=== PATIENT | female | born 1990 | race Caucasian/White ===

== ENCOUNTER 2017-08-15 08:51 | Day surgery (SDC) | END 2017-08-15 13:24 | disposition home or self-care (01) ==

== ENCOUNTER 2017-09-15 09:51 | Emergency (ER) | END 2017-09-15 13:08 | disposition home or self-care (01) ==

== ENCOUNTER 2017-10-19 23:21 | Emergency (ER) | END 2017-10-20 01:36 | disposition home or self-care (01) ==

== ENCOUNTER 2018-01-30 15:26 | Emergency (ER) | END 2018-01-30 18:06 | disposition home or self-care (01) ==

== ENCOUNTER 2018-02-27 15:35 | Emergency (ER) | END 2018-02-27 16:51 | disposition home or self-care (01) ==

== ENCOUNTER 2018-03-23 09:10 | Emergency (ER) | END 2018-03-23 11:09 | disposition home or self-care (01) ==

== ENCOUNTER 2018-05-31 15:13 | Emergency (ER) | payer OTHER ==
[~2018-05-31] VITALS: Ht 160 cm; Wt 65.4 kg
[~2018-05-31 15:13] MED LIST: ACET500C5 PO; ALBU8.5H8 INH; AMOX500C2 PO; AZIT250T PO; CETI10CA PO; FLUT9.9S NASAL; GUAI-637 PO; GUAI5SYR2 PO; IBUP-1542 PO; METO10TA92 PO
[2018-05-31 15:15] VITALS: BP 116/59; PULSE 99; RESP 18; Ht 160 cm; Wt 65.4 kg
--- NOTE | 2018-05-31 16:28 | ERD ---
ER Documentation Chief Complaint Chief Complaint L-LEG NUMBNESS X 2 DAYS S/P LUMBAR PUNCTURE TO R/O MS; AMBULATORY HPI 27-year-old female, presents to the emergency department, complaining of 2 days with left lower extremity numbness after having a lumbar puncture as a part of an evaluation for multiple sclerosis. The patient denies fevers, no chills, no rashes. No incontinence. The patient has been able to ambulate without difficulty. ROS All systems reviewed and are negative except as per history of present illness. Medications Home Meds Active Scripts Ibuprofen* (Motrin*) 600 Mg Tab, 600 MG PO Q6, #30 TAB Prov:JU HICKEY PA-C 03/23/18 Acetaminophen* (Tylophen*) 500 Mg Capsule, 1 CAP PO Q6H PRN for PAIN AND OR ELEVATED TEMP, #20 CAP Prov:ZOHREH BARAJAS PA-C 02/27/18 Amoxicillin* (Amoxicillin*) 500 Mg Cap, 500 MG PO TID for 10 Days, CAP Prov:ZOHREH BARAJAS PA-C 02/27/18 Metoclopramide* (Reglan*) 10 Mg Tablet, 10 MG PO Q6 PRN for NAUSEA AND/OR VOMITING, #10 TAB Prov:ZOHREH BARAJAS PA-C 01/30/18 Guaifenesin* (Robitussin*) 100 Mg/5 Ml Syrup, 200 MG PO Q6H PRN for COUGH for 3 Days, ML Prov:ROSARIO ESTEBAN 10/20/17 Albuterol Sulfate* (Proair HFA*) 8.5 Gm Hfa.aer.ad, 2 PUFF INH Q6H PRN for WHEEZING AND SOB, #1 INHALER Prov:ROSARIO ESTEBAN 10/20/17 Azithromycin* (Zithromax*) 250 Mg Tablet, 250 MG PO .ZPACK DIRECTED, #6 TAB TAKE 500 MG (2 TABS) THE FIRST DAY THEN 250 MG (1 TAB) DAYS 2-5 Prov:ROSARIO ESTEBAN 10/20/17 Guaifenesin-Dextromethorphan* (Robitussin* DM) 100MG/10MG/5ML Syrup, 10 ML PO Q6H PRN for COUGH for 5 Days, ML Prov:NATHANAEL PEREZ PA-C 09/15/17 Fluticasone Propionate (Flonase Allergy Relief) 9.9 Ml [place].susp, 2 SPRAY NASAL DAILY, #1 BOTTLE TO EACH NOSTRIL Prov:NATHANAEL PEREZJon SALCEDO 09/15/17 Cetirizine Hcl* (Zyrtec*) 10 Mg Capsule, 10 MG PO DAILY, #14 TAB.CHEW Prov:NATHANAEL PEREZJon SALCEDO 09/15/17 Allergies Allergies: Coded Allergies: No Known Allergy (Unverified , 01/30/18) PMhx/Soc History of Surgery: Yes (C/S X2, ARM SURGERY, TONSILLECTOMY) Anesthesia Reaction: No Hx Neurological Disorder: Yes (migraine) Hx Respiratory Disorders: No Hx Cardiac Disorders: No Hx Psychiatric Problems: No Hx Miscellaneous Medical Probl: No Hx Alcohol Use: No Hx Substance Use: No Hx Tobacco Use: No Smoking Status: Never smoker FmHx Family History: No diabetes, No coronary disease Physical Exam Vitals Physical Exam Const: No acute distress Head: Atraumatic Eyes: Normal Conjunctiva ENT: Normal External Ears, Nose and Mouth. Neck: Full range of motion. No meningismus. Resp: Clear to auscultation bilaterally Cardio: Regular rate and rhythm, no murmurs Abd: Soft, non tender, non distended. Normal bowel sounds Skin: No petechiae or rashes Back: No midline or flank tenderness Ext: No cyanosis, or edema Neur: Awake and alert Psych: Normal Mood and Affect Results 24 hrs Laboratory Tests Test 05/31/18 16:36 POC Beta HCG, Qualitative NEGATIVE Procedures/MDM Vital signs stable. Differential diagnosis considered include multiple sclerosis, nerve compression, post LP hematoma, less likely abscess, peripheral neuropathy, electrolyte imbalance, thyroid disease, vitamin deficiency, medication side effect. Low suspicion for stroke or EXECUTIVE COORDINATOR mass. During the ED course the patient remained stable, no new complaints. Results and clinical impression discussed with the patient who agrees with management. The patient is stable to be treated outpatient and will be discharged home. Follow up with the primary care provider in the next 48h has been recommended. If symptoms persist, worsen or new symptoms develop, then patient should return to the ED immediately. Instructions explained and given directly by me to the patient with ackn owledgment and demonstrated understanding. Disclaimer: Inadvertent spelling and grammatical errors are likely due to EHR/dictation software use and do not reflect on the overall quality of patient care. Also, please note that the electronic time recorded on this note does not necessarily reflect the actual time of the patient encounter. Departure Diagnosis: Primary Impression: Paresthesia of left leg Additional Impression: History of lumbar puncture Condition: Stable Patient Instructions: Paraesthesias Additional Instructions: Thank you very much for allowing us to participate in your care. Your health and safety is our top priority at [facility]. Call your primary care doctor TOMORROW for an appointment during the next 2-4 days and bring all the information and medications prescribed. Have prescriptions filled and follow precisely the directions on the label. If the symptoms get worse and your provider is unavailable, return to the Emergency Department immediately. DICKSON HOLDER MD May 31, 2018 16:28
== END 2018-05-31 18:48 | disposition home or self-care (01) ==
LOC: FTE 15:13
DX: R20.2 Paresthesia of skin (principal)
CPT/HCPCS: 72131; 81025; Z7502

== ENCOUNTER 2018-08-02 09:27 | Emergency (ER) | payer OTHER ==
[~2018-08-02] VITALS: Ht 160 cm; Wt 65.9 kg
[2018-08-02 09:59] VITALS: BP 124/67; PULSE 100; RESP 20; Ht 160 cm; Wt 65.9 kg
[2018-08-02] MEDS ORDERED: IBUP-1542 PO (11:52)
[2018-08-02] MEDS ORDERED: ACET-141 PO (11:52)
[2018-08-02] MEDS ORDERED: METH750T93 PO (11:52)
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
== END 2018-08-02 13:31 | disposition home or self-care (01) ==
LOC: FTE 09:27
DX: M54.2 Cervicalgia (principal)
CPT/HCPCS: 99282